=== PATIENT | female | born 1990 | race African-American/Black ===

== ENCOUNTER 2016-08-18 09:27 | Emergency (ER) | payer MEDICAID ==
[~2016-08-18] VITALS: Ht 167.6 cm; Wt 122.5 kg
[2016-08-18 09:30] VITALS: BP 113/76
--- NOTE | 2016-08-18 09:55 | Emergency Room Report ---
History of Present Illness General Chief Complaint: Toothache Source: Patient Present Illness HPI Presents with toothache. Tooth crack months ago. The pain started to get worse 3 days ago. She took Motrin 800 mg every 6 hours since last night. Has not been helping. She denies any fevers or chills. The pain is constant radiates somewhat to the jaw is severe. No neck pain, swelling. No problems eating except with chewing on that side. Allergies: Coded Allergies: No Known Allergies (Unverified , 08/18/16) Patient History Past Medical History: see triage record Social History Narrative She works for [employer] Last Menstrual Period: 08/02/16 Now: No : 0 Para: 0 Reviewed Nursing Documentation: PMH: Agreed, PSxH: Agreed Nursing Documentation-PMH Hx Gastrointestinal Problems: Yes - gallstones remove 2013 Review of Systems Constitutional: Reports: see HPI ENT: Reports: see HPI Respiratory: Denies: cough Cardiovascular: Denies: chest pain Gastrointestinal: Reports: see HPI Musculoskeletal: Reports: see HPI Skin: Reports: see HPI Physical Exam Vital Signs Date Time Temp Pulse Resp B/P Pulse Ox O2 Delivery O2 Flow Rate FiO2 08/18/16 09:30 99.1 18 113/76 98 Room Air 08/18/16 09:30 68 Sp02 EP Interpretation: reviewed, normal General Appearance: well appearing, no apparent distress Head: normocephalic, atraumatic ENT: hearing grossly normal, normal pharynx, normal voice, other - cracked molar L 1st, no significant swelling Neck: full range of motion, supple Respiratory: no respiratory distress, speaking full sentences Musculoskeletal: gait/station normal Neurologic: alert, normal gait Psychiatric: mood/affect normal Skin: no rash Medical Decision Making Diagnostic Impression: Primary Impression: Toothache ER Course Patient with tooth pain with cracked molar. Needs antibiotics and analgesia. Will also need to follow up with dentist. Patient stable for outpatient observation and treatment. Last Vital Signs Date Time Temp Pulse Resp B/P Pulse Ox O2 Delivery O2 Flow Rate FiO2 08/18/16 10:24 99.1 18 113/76 98 Room Air 08/18/16 09:30 68 Status: improved Disposition: HOME, SELF-CARE Condition: Improved Scripts Lidocaine HCl (Lidocaine HCl Viscous) 100 Ml Solution 1 APPLIC PO Q6HR Y for For Pain, #30 ML Prov: Stewart Oconnell M.D. 08/18/16 Ibuprofen* (MOTRIN*) 600 Mg Tablet 600 MG ORAL Q6H Y for For Pain, #16 TAB Prov: Stewart Oconnell M.D. 08/18/16 Hydrocodone Bit/Acetaminophen 5-325* (NORCO 5-325*) 1 Each Tablet 1 TAB ORAL Q6H Y for For Pain, #10 TAB 0 Refills Prov: Stewart Oconnell M.D. 08/18/16 Amoxicillin* (AMOXIL*) 500 Mg Capsule 500 MG ORAL THREE TIMES A DAY, #21 CAP Prov: Stewart Oconnell M.D. 08/18/16 Stewart Oconnell M.D. Aug 18, 2016 09:55
[2016-08-18] MEDS ORDERED: NORCO 5-325 TA1 EACH ORAL (09:59)
[2016-08-18] MEDS ORDERED: IBUPROFEN600 MG ORAL (09:59)
[2016-08-18] MEDS ORDERED: AMOXICILLIN500 MG ORAL (09:59)
[2016-08-18] MEDS ORDERED: LIDOCAINE VISCO20 ML PO (09:59)
[2016-08-18] MEDS ORDERED: Norco 5mg/325mg tab ORAL ONE (10:00)
[2016-08-18 10:24] VITALS: BP 113/76
== END 2016-08-18 10:25 | disposition home or self-care (01) ==
LOC: EMR 10:11
DX: K08.89 Other specified disorders of teeth and supporting structures (principal)
CPT/HCPCS: 99284

== ENCOUNTER 2016-09-23 10:57 | Emergency (ER) | payer MEDICAID ==
[~2016-09-23] VITALS: Ht 165.1 cm; Wt 99.8 kg
[~2016-09-23 10:57] MED LIST: AMOXICILLIN500 MG ORAL; IBUPROFEN600 MG ORAL; LIDOCAINE VISCO20 ML PO; NORCO 5-325 TA1 EACH ORAL
[2016-09-23 11:06] VITALS: BP 110/63
[2016-09-23] MEDS ORDERED: IBUPROFEN600 MG ORAL (11:19)
--- NOTE | 2016-09-23 11:27 | Emergency Room Report ---
History of Present Illness General Chief Complaint: Toothache Source: Patient, Medical Record Present Illness HPI Patient present with complaints of right lower dental pain Reports that she has not been able to see a dentist And will be able to see him on Monday However the pain continues 10/15 Patient has some associated pain to the front part of the ear Denies any fevers chills Denies any trismus Denies any neck pain Allergies: Coded Allergies: No Known Allergies (Unverified , 08/18/16) Patient History Past Medical History: see triage record Pertinent Family History: none Last Menstrual Period: 09/04/16 Reviewed Nursing Documentation: PMH: Agreed, PSxH: Agreed Nursing Documentation-PMH Past Medical History: No History, Except For Hx Gastrointestinal Problems: Yes - gallstones remove 2012 Review of Systems All Other Systems: negative except mentioned in HPI Physical Exam Vital Signs Date Time Temp Pulse Resp B/P Pulse Ox O2 Delivery O2 Flow Rate FiO2 09/23/16 11:06 98.3 80 16 110/63 97 Room Air Sp02 EP Interpretation: reviewed, normal General Appearance: well appearing, no apparent distress Head: normocephalic, atraumatic Eyes: bilateral eye EOMI, bilateral eye PERRL ENT: other - Dental decay and what appears to be possible break in the right back molar region, no associated gingival edema Neck: supple Respiratory: lungs clear Cardiovascular #1: regular rate, rhythm Gastrointestinal: non tender, soft Musculoskeletal: normal inspection Neurologic: alert, oriented x3 Skin: no rash Lymphatic: no adenopathy Medical Decision Making Diagnostic Impression: Primary Impression: Toothache ER Course Given the patient's presentation appears to have radiology in line with dental pathology Patient initially states that she has not seen a dentist however on cures, it appears the patient filled opiate medications from a dentist in the beginning of September Patient also had [place] from this emergency room previous to that Given the safe pain medicine prescribing campaign patient was discussed regarding the importance of close primary and dental followup unfortunately at this time further opiate prescription is inappropriate and the patient requires close outpatient followup Patient was given prescription medicine for pain however Last Vital Signs Date Time Temp Pulse Resp B/P Pulse Ox O2 Delivery O2 Flow Rate FiO2 09/23/16 11:06 98.2 80 16 110/63 97 Room Air Status: unchanged Disposition: HOME, SELF-CARE Condition: Stable Scripts Ibuprofen* (MOTRIN*) 600 Mg Tablet 600 MG ORAL Q8H Y for For Pain, #20 TAB 0 Refills Prov: SUE GALLARDO D.O. 09/23/16 Patient Instructions: Dental Pain Additional Instructions: Patient is provided with the discharge instructions notified to follow up with primary doctor in the next 2-3 days otherwise return to the er with any worsening symptoms. Please note that this report is being documented using [employer] technology. This can lead to erroneous entry secondary to incorrect interpretation by the dictating instrument. SUE GALLARDO D.O. September 23, 2016 11:27
[2016-09-23 11:29] VITALS: BP 115/75
== END 2016-09-23 11:27 | disposition home or self-care (01) ==
LOC: EMR 11:20
DX: K08.89 Other specified disorders of teeth and supporting structures (principal)
CPT/HCPCS: 99283

== ENCOUNTER 2017-05-26 07:20 | Emergency (ER) | payer MEDICAID ==
[~2017-05-26] VITALS: Ht 167.6 cm; Wt 99.8 kg
[2017-05-26] MEDS ORDERED: NKM (07:27)
[2017-05-26 07:30] VITALS: BP 108/70
[2017-05-26] MEDS ORDERED: PEPCID20 MG ORAL (07:52)
[2017-05-26] MEDS ORDERED: ZOFRAN ODT4 MG ORAL (07:52)
[2017-05-26 07:57] VITALS: BP 108/70
--- NOTE | 2017-05-26 08:26 | Emergency Room Report ---
History of Present Illness General Chief Complaint: Abdominal Pain Source: Patient Present Illness HPI 26-year-old female with bilateral lower abdominal pain since last night Associated with last episode of vomiting 3 hours prior Patient states she has "been on a diet for 5 days and "but then had meat for first time last night and immediately fell ill right after." No other sick contacts at home or work. Patient now feels like she is going to have multiple episodes of diarrhea No other abdominal surgery aside from cholecystectomy Allergies: Coded Allergies: No Known Allergies (Unverified , 08/18/16) Patient History Past Surgical History: kulwant Pertinent Family History: none Social History: Denies: smoking, alcohol use, drug use Last Menstrual Period: 05/22/2017 Now: No Immunizations: UTD Reviewed Nursing Documentation: PMH: Agreed, PSxH: Agreed Nursing Documentation-PMH Past Medical History: No Stated History Hx Gastrointestinal Problems: Yes - gallstones remove 2012 Review of Systems All Other Systems: negative except mentioned in HPI Physical Exam Vital Signs Date Time Temp Pulse Resp B/P (MAP) Pulse Ox O2 Delivery O2 Flow Rate FiO2 05/26/17 07:23 97.9 62 14 102/68 100 Room Air Sp02 EP Interpretation: reviewed, normal General Appearance: normal inspection, well appearing, no apparent distress, alert, GCS 15, non-toxic, obese Head: normocephalic, atraumatic Eyes: bilateral eye PERRL, bilateral eye EOMI ENT: normal ENT inspection, hearing grossly normal, normal pharynx, no angioedema, normal voice, TMs + canals normal, uvula midline, moist mucus membranes Neck: normal inspection, full range of motion, supple, thyroid normal, no meningismus, no bony tend Respiratory: normal inspection, lungs clear, normal breath sounds, no rhonchi, no respiratory distress, no retraction, no accessory muscle use, no wheezing, speaking full sentences Cardiovascular #1: regular rate, rhythm, no edema, no JVD, normal capillary refill Gastrointestinal: normal inspection, normal bowel sounds, non tender, soft, no mass, no peritonitis, non-distended, no guarding, no hernia, no pulsatile mass Genitourinary: no CVA tenderness Musculoskeletal: normal inspection, back normal, normal range of motion, no calf tenderness, pelvis stable, Daxa's Sign negative Neurologic: normal inspection, alert, oriented x3, responsive, international accountant III-XII nml as tested, motor strength/tone normal, cerebellar normal, normal gait, speech normal Psychiatric: normal inspection, judgement/insight normal, mood/affect normal, no suicidal/homicidal ideation, no delusions Skin: normal inspection, normal color, no rash Lymphatic: normal inspection, no adenopathy Medical Decision Making Diagnostic Impression: Primary Impression: Abdominal pain Qualified Codes: R10.9 - Unspecified abdominal pain ER Course 26-year-old female with abdominal pain Vital signs stable, afebrile No focal abdominal tenderness on exam tolerating by mouth in the ER, was given Zofran possible viral gastroenteritis given the symptoms started immediately after eating food Suspicion for acute bacterial or surgical process given normal vitals, well appearance and nonfocal abdomen ER course: Patient has remained stable during ED stay. Disposition: Patient is to be discharged to home. Prescriptions given are zofran, pepcid Patient is instructed to follow up with their primary care doctor within 5 days. Strict return precautions discussed with patient such as fever, chills, worsening/severe pain, nausea, vomiting, which may indicate severe illness. Patient verbalizes understanding and agrees with plan. Please note that this Emergency Department Report was dictated using [employer] tutor technology software, occasionally this can lead to erroneous entry secondary to interpretation by the dictation equipment Last Vital Signs Date Time Temp Pulse Resp B/P (MAP) Pulse Ox O2 Delivery O2 Flow Rate FiO2 05/26/17 07:57 97.9 82 12 108/70 100 Room Air Status: improved Disposition: HOME, SELF-CARE Condition: Improved Scripts Ondansetron Odt* (ZOFRAN ODT*) 4 Mg Tab.rapdis 4 MG ORAL TID Y for Nausea & Vomiting for 7 Days, #20 TAB 0 Refills Prov: ALEJANDRA BELTRAN M.D. 05/26/17 Famotidine (PEPCID) 20 Mg Tablet 20 MG ORAL BID for 7 Days, #14 TAB 0 Refills Prov: ALEJANDRA BELTRAN M.D. 05/26/17 Patient Instructions: Viral Gastroenteritis, Adult, [id number] Additional Instructions: - Take zofran as needed for nausea - [place] food, garrett felecia only - Take pepcid twice a day until symptoms resolve ALEJANDRA BELTRAN M.D. May 26, 2017 08:26
== END 2017-05-26 07:57 | disposition home or self-care (01) ==
LOC: EMR 07:49
DX: R10.9 Unspecified abdominal pain (principal); Z90.49 Acquired absence of other specified parts of digestive tract
CPT/HCPCS: 99284

== ENCOUNTER 2017-07-15 17:45 | Emergency (ER) | payer MEDICAID ==
[~2017-07-15] VITALS: Ht 165.1 cm; Wt 99.8 kg
[~2017-07-15 17:45] MED LIST changes: +NKM; +PEPCID20 MG ORAL; +ZOFRAN ODT4 MG ORAL
--- NOTE | 2017-07-15 18:03 | Emergency Room Report ---
History of Present Illness General Chief Complaint: Lower Extremity Injury Source: Patient Present Illness HPI 27 yo female patient presents to ER complaining of right ankle pain [id number]. Reports injury at that time, states she never followup with her physician. Denies calf pain. 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 Reports taking Ibuprofen for pain symptoms. Denies chest pain, SOB, fever. Reports able to ambulate; reports drove herself to work. Denies pain worse in the morning. Allergies: Coded Allergies: No Known Allergies (Unverified , 08/18/16) Patient History Past Medical History: see triage record Last Menstrual Period: 06/15/17 Now: No : 0 Para: 0 Reviewed Nursing Documentation: PMH: Agreed, PSxH: Agreed Nursing Documentation-PMH Past Medical History: No History, Except For Hx Gastrointestinal Problems: Yes - gallstones remove 2012 Review of Systems All Other Systems: negative except mentioned in HPI Physical Exam Vital Signs Date Time Temp Pulse Resp B/P (MAP) Pulse Ox O2 Delivery O2 Flow Rate FiO2 07/15/17 17:53 98.2 78 18 109/75 99 Room Air 98.2 Sp02 EP Interpretation: reviewed, normal General Appearance: well appearing, no apparent distress, alert, GCS 15 Head: normocephalic, atraumatic Eyes: bilateral eye normal inspection, bilateral eye PERRL ENT: hearing grossly normal, normal pharynx, no angioedema, normal voice, uvula midline, moist mucus membranes Neck: full range of motion Respiratory: lungs clear, normal breath sounds, no rhonchi, no respiratory distress, no accessory muscle use, no wheezing, speaking full sentences Cardiovascular #1: regular rate, rhythm, no edema Cardiovascular #2: 2+ dorsalis pedis (R), 2+ dorsalis pedis (L) Genitourinary: no CVA tenderness Musculoskeletal: back normal, digits/nails normal, gait/station normal, normal range of motion, non-tender, no calf tenderness, Daxa's Sign negative, other - NVI, no TTP, no TTP along malleolus, fifth metatarsal, no swelling, no erythema , no ecchymosis, sensation intact to light touch, low arches bilaterally Neurologic: alert, oriented x3, responsive, motor strength/tone normal, sensory intact, normal gait Psychiatric: mood/affect normal Skin: no rash Lymphatic: no adenopathy Medical Decision Making PA Attestation Dr. Littlejohn is my supervising Physician whom patient management has been discussed with. Diagnostic Impression: Primary Impression: Ankle pain ER Course Pt. presents to the ED c/o ankle pain. Ddx considered but are not limited to sprain, strain, contusion. Vital signs: are WNL, pt. is afebrile Due to benign PE and chronicity of symptoms, imaging not required at this time. Informed patient she has low arches; instructed patient to use arch supports. ED INTERVENTIONS: LAURA Wrap applied to right ankle. The affected ankle was checked afterwards by me showing good alignment and support with distal neurovascular functioning intact. Patient requesting strong pain medication. Informed patient would provide with Tylenol. Patient declines crutches. DISCHARGE: -Rx provided for Tylenol for pain symptoms. At this time pt. is stable for d/c to home. Patient resting comfortably, in no acute distress, nontoxic appearing. Will provide printed patient care instructions, and any necessary prescriptions. Patient instructed to follow with primary care provider in 3 - 5 days and to request further orthopedic follow-up. Care plan and follow up instructions have been discussed with the patient prior to discharge. Patient instructed on RICE method: rest, ice, compression, elevation. Patient instructed to WBAT. Take medications as directed. Patient questions asked and answered. ER precautions given, patient instructed to return to ER immediately for any new or worsening of symptoms. Last Vital Signs Date Time Temp Pulse Resp B/P (MAP) Pulse Ox O2 Delivery O2 Flow Rate FiO2 07/15/17 17:53 98.2 78 18 109/75 99 Room Air 98.2 Disposition: HOME, SELF-CARE Condition: Stable Scripts Acetaminophen* (TYLENOL EXTRA STRENGTH*) 500 Mg Tablet 500 MG ORAL Q8H Y for Prn Headache/Temp > 101, #30 TAB 0 Refills Prov: Rene Lugo.Rigoberto 07/15/17 Patient Instructions: Ankle Sprain Additional Instructions: Patient instructed to follow up with primary care provider and discuss further referral to orthopedics and/or pain management. Patient instructed on RICE method: rest, ice, compression, elevation. Use orthotic inserts at home. Patient instructed to WBAT. Take medications as directed. Patient questions asked and answered. ER precautions given, patient instructed to return to ER immediately for any new or worsening of symptoms. Rene Lugo Jul 15, 2017 18:02
[2017-07-15] MEDS ORDERED: TYLENOL EXTRA500 MG ORAL (18:15)
[2017-07-15 18:21] VITALS: BP 109/75
== END 2017-07-15 18:21 | disposition home or self-care (01) ==
LOC: EMR 18:20
DX: M25.571 Pain in right ankle and joints of right foot (principal)
CPT/HCPCS: 99283

== ENCOUNTER 2017-10-28 11:47 | Emergency (ER) | payer MEDICAID ==
[~2017-10-28] VITALS: Ht 167.6 cm; Wt 113.4 kg
[~2017-10-28 11:47] MED LIST changes: +TYLENOL EXTRA500 MG ORAL
[2017-10-28 12:10] VITALS: BP 110/77
[2017-10-28] MEDS ORDERED: Lidocaine 2% Visc 15ml soln ORAL ONE (12:15)
--- NOTE | 2017-10-28 12:23 | Emergency Room Report ---
History of Present Illness General Chief Complaint: Chest Pain Source: Patient Present Illness HPI 27-year-old female patient presents ER complaining of intermittent chest pain for the past 3 days. Reports that she also has a sore throat due to intermittent symptoms of vomiting, last episode of vomiting yesterday, denies blood in emesis.. Also reports that she smokes cigarettes. Denies past cardiovascular history. Denies history of asthma. Reports that she had her gallbladder removed. reports that chest pain does not occur with exertion. denies radiation of chest pain. Also complains of mild epigastric discomfort during this time. reports that she eats a lot of spicy foods and has some reflux symptoms. denies difficulty breathing, fever, abdominal pain, dysuria, hematuria. Denies hx of cancer, denies hx of immobilization, denies hx of recent travel, denies cough or hemoptysis. Allergies: Coded Allergies: No Known Allergies (Unverified , 08/18/16) Patient History Past Medical History: see triage record Last Menstrual Period: 10/10/17 Now: No : 0 Para: 0 Reviewed Nursing Documentation: PMH: Agreed; PSxH: Agreed Nursing Documentation-PMH Hx Gastrointestinal Problems: Yes - Cholecystectomy 2012 Review of Systems All Other Systems: negative except mentioned in HPI Physical Exam Vital Signs Date Time Temp Pulse Resp B/P (MAP) Pulse Ox O2 Delivery O2 Flow Rate FiO2 10/28/17 11:57 98.1 78 18 110/77 96 Room Air 98.1 Sp02 EP Interpretation: reviewed, normal General Appearance: well appearing, no apparent distress, alert, GCS 15, non- toxic Head: normocephalic, atraumatic Eyes: bilateral eye normal inspection, bilateral eye PERRL ENT: hearing grossly normal, normal pharynx, no angioedema, normal voice, TMs + canals normal, uvula midline, moist mucus membranes Neck: full range of motion Respiratory: lungs clear, normal breath sounds, no rhonchi, no respiratory distress, no accessory muscle use, no wheezing, speaking full sentences Cardiovascular #1: regular rate, rhythm, no edema Gastrointestinal: non tender, soft, no mass, non-distended, no guarding, no rebound Genitourinary: no CVA tenderness Musculoskeletal: back normal, digits/nails normal, gait/station normal, normal range of motion, non-tender Neurologic: alert, oriented x3, responsive, motor strength/tone normal, sensory intact Psychiatric: mood/affect normal Medical Decision Making PA Attestation Dr. Littlejohn is my supervising Physician whom patient management has been discussed with. Diagnostic Impression: Primary Impression: Acid reflux ER Course Pt. presents to the ED c/o intermittent chest pain, vomiting, and epigastric discomfort. Ddx considered but are not limited to esophagitis, influenza, GERD, vomiting, ID. Low suspicion for PE per the Well's criteria. Vital signs: are WNL, pt. is afebrile ER COURSE: Physical exam benign, lungs clear to auscultation. EKG shows no arrhythmia, no ST elevations, normal sinus rhythm. CXR negative for acute disease. Intermittent chest pain with reflux symptoms, no hx of cardiovascular disease, normal EKG, low suspicion for cardiac etiology of symptoms, does not require labs at this time. provided Pepcid and viscous lidocaine while in ER. History and symptoms consistent with reflux, instructed patient to avoid spicy foods and dairy foods, elevate head of bed, drink plenty of fluids. Avoid stress, may exacerbate symptoms. Work note provided. Instructed patient to stop smoking. DISCHARGE: Rx provided for Pepcid At this time pt is stable for d/c to home. Patient is resting, in no acute distress, nontoxic appearing. Will provide with patient care instructions and any necessary prescriptions. Patient to take medication as instructed. Care plan and follow-up instructions provided. Patient questions asked and answered. Patient instructed to follow-up with primary care provider in 3- 5 days to discuss further treatment and referral to GI specialist for evaluation. Patient states understanding and agreement to treatment plan ER precautions given. Patient instructed to return to ER immediately for any new or worsening of symptoms - Please note that this Emergency Department Report was dictated using [employer] mechanic technology software, occasionally this can lead to erroneous entry secondary to interpretation by the dictation equipment. EKG Diagnostic Results EP Interpretation: 68 Rate: normal Rhythm: NSR ST Segments: no acute changes ASA given to the pt in ED: No PA Scribe Text Bakari Lugo PA-C Rhythm Strip Diag. Results EP Interpretation: yes Rate: 68 Rhythm: NSR, no PVC's, no ectopy PA Scribe Text Bakari Lugo PA-C Chest X-Ray Diagnostic Results Chest X-Ray Diagnostic Results : Chest X-Ray Ordered: Yes # of Views/Limited/Complete: 1 View EP Interpretation: Yes DOUG Xray: Interpretation reviewed, by supervising MD, and agrees with findings. Interpretation: no consolidation, no effusion, no pneumothorax, no acute cardiopulmonary disease Impression: No acute disease DOUG Scribjohnny Text Bakari Lugo PA-C Last Vital Signs Date Time Temp Pulse Resp B/P (MAP) Pulse Ox O2 Delivery O2 Flow Rate FiO2 10/28/17 12:10 78 18 Room Air 10/28/17 11:57 98.1 110/77 96 98.1 Disposition: HOME, SELF-CARE Condition: Stable Scripts Famotidine (PEPCID AC) 20 Mg Tablet 20 MG PO BID, #30 TAB Prov: Rene Lugo 10/28/17 Patient Instructions: Food Choices for Gastroesophageal Reflux Disease, Adult, [id number], Heartburn Additional Instructions: Followup with primary care provider in 3 -5 days for further treatment and referral to GI. Keep food journal of foods eaten and times of symptom onset. Take medications as directed. Patient questions asked and answered. ER precautions given, patient instructed to return to ER immediately for any new or worsening of symptoms including but not limited to chest pain, SOB, abdominal pain, blood in vomit. Drink fluids as tolerated to prevent dehydration. Take Tylenol OTC for pain, easier on stomach. Avoid spicy foods, avoid dairy. Do not eat late night meals. Elevate head of bed when sleeping. stop smoking. Rene Lugo Oct 28, 2017 12:23
[2017-10-28] MEDS ORDERED: PEPCID AC20 M2 PO (12:29)
--- NOTE | 2017-10-28 12:29 | Diagnostic Imaging Report ---
EXAM: XR Chest, 1 View CLINICAL HISTORY: PAIN TECHNIQUE: Frontal view of the chest. COMPARISON: No relevant prior studies available. FINDINGS: Lungs: No consolidation. Pleural space: Unremarkable. No pneumothorax. Heart: Unremarkable. No cardiomegaly. Mediastinum: Unremarkable. Bones/joints: No acute fracture. IMPRESSION: No acute cardiopulmonary disease.
[2017-10-28 12:53] VITALS: BP 110/77
--- NOTE | 2017-11-01 15:27 | Cardiology Report ---
APPROVED REPORT EKG Measurement Heart [id number] Normal sinus rhythm Normal ECG
== END 2017-10-28 13:00 | disposition home or self-care (01) ==
LOC: EMR 12:30
DX: K21.9 Gastro-esophageal reflux disease without esophagitis (principal); Z90.49 Acquired absence of other specified parts of digestive tract
CPT/HCPCS: 71045; 93005; 99283

== ENCOUNTER 2018-01-22 21:53 | Emergency (ER) | payer MEDICAID ==
[~2018-01-22] VITALS: Ht 167.6 cm; Wt 113.4 kg
[~2018-01-22 21:53] MED LIST changes: +PEPCID AC20 M2 PO
[2018-01-22 21:57] VITALS: BP 128/74
--- NOTE | 2018-01-22 22:19 | Emergency Room Report ---
History of Present Illness General Chief Complaint: Flu Like Symptoms Source: Patient Present Illness HPI 27-year-old female presents ED for evaluation. States that she is having cough and congestive symptoms for the last 4-5 days. Runny nose, cough is dry. No sore throat and earache. Pain is dull, 6 out of 10, nonradiating. States that she's been taking efjo-[id number] cold medication. States that she did drink some wine tonight. Is feeling weak and dizzy. States she's having frequent urination. Denies flank pain. Denies nausea or vomiting. No other aggravating relieving factors. Denies any other associated symptoms Allergies: Coded Allergies: No Known Allergies (Unverified , 08/18/16) Patient History Past Surgical History: kulwant Pertinent Family History: none Social History: Denies: smoking, alcohol use, drug use Last Menstrual Period: 01/22/2018 Now: No : 0 Para: 0 Immunizations: UTD Reviewed Nursing Documentation: PMH: Agreed; PSxH: Agreed Nursing Documentation-PMH Past Medical History: No Stated History Hx Gastrointestinal Problems: Yes - Cholecystectomy 2012 Review of Systems All Other Systems: negative except mentioned in HPI Physical Exam Vital Signs Date Time Temp Pulse Resp B/P (MAP) Pulse Ox O2 Delivery O2 Flow Rate FiO2 01/22/18 21:57 98.1 106 16 128/74 98 Room Air 98.1 Sp02 EP Interpretation: reviewed, normal General Appearance: no apparent distress, alert, GCS 15, non-toxic Head: normocephalic, atraumatic Eyes: bilateral eye normal inspection, bilateral eye PERRL ENT: hearing grossly normal, normal pharynx, no angioedema, normal voice Neck: full range of motion, supple/symm/no masses Respiratory: chest non-tender, lungs clear, normal breath sounds, speaking full sentences Cardiovascular #1: regular rate, rhythm, no edema Cardiovascular #2: 2+ carotid (R), 2+ carotid (L), 2+ radial (R), 2+ radial (L) , 2+ dorsalis pedis (R), 2+ dorsalis pedis (L) Gastrointestinal: normal bowel sounds, non tender, soft, non-distended, no guarding, no rebound Rectal: deferred Genitourinary: normal inspection, no CVA tenderness Musculoskeletal: back normal, gait/station normal, normal range of motion, non- tender Neurologic: alert, oriented x3, responsive, motor strength/tone normal, sensory intact, speech normal Psychiatric: judgement/insight normal, memory normal, mood/affect normal, no suicidal/homicidal ideation Reflexes: 3+ bicep (R), 3+ bicep (L), 3+ tricep (R), 3+ tricep (L), 3+ knee (R) , 3+ knee (L) Skin: normal color, no rash, warm/dry, well hydrated Lymphatic: no adenopathy Medical Decision Making Diagnostic Impression: Primary Impression: Upper respiratory infection Qualified Codes: J04.31 - Supraglottitis, unspecified, with obstruction ER Course Hospital Course 27-year-old female presents to ED complaining of cough, runny nose. feels dizzy and weak after taking OTC meds with wine Differential diagnoses include: URI, pharyngitis, otitis media, UTI Clinical course Patient placed on stretcher. After initial history, physical exam reveals a young female in no acute distress. Bilateral TM unremarkable. No pharyngeal erythema. No tonsillar exudates. No lymphadenopathy. lungs clear. abdomen soft. UA negative. Patient's symptoms improved after IV hydration. Patient safe for discharge. Diagnosis - URI Stable and discharged home. Instructed to followup with PMD. Return to ED if symptoms recur or worsen Labs Test 01/22/18 22:05 Urine Color Pale yellow Urine Appearance Clear Urine pH 6 (4.5-8.0) Urine Specific [place] 1.005 (1.005-1.035) Urine Protein Negative (NEGATIVE) Urine Glucose (UA) Negative (NEGATIVE) Urine Ketones Negative (NEGATIVE) Urine Blood Negative (NEGATIVE) Urine Nitrite Negative (NEGATIVE) Urine Bilirubin Negative (NEGATIVE) Urine Urobilinogen Normal MG/DL (0.0-1.0) Urine Leukocyte Esterase Negative (NEGATIVE) Urine HCG, Qualitative Negative (NEGATIVE) Last Vital Signs Date Time Temp Pulse Resp B/P (MAP) Pulse Ox O2 Delivery O2 Flow Rate FiO2 01/22/18 21:57 98.1 106 16 128/74 98 Room Air 98.1 Status: improved Disposition: HOME, SELF-CARE Condition: Stable Referrals: NOT CHOSEN IPA/,REFERRING (PCP) Leandro Ordoñez MD Jan 22, 2018 22:19
[2018-01-22 22:23] LABS: APPEARANCE,URINE CLEAR; BILIRUBIN, URINE NEGATIVE (NEGATIVE); COLOR,URINE PALE YELLOW; GLUCOSE, URINE (UA) NEGATIVE (NEGATIVE); KETONES,URINE NEGATIVE (NEGATIVE); LEUKOCYTE ESTERASE ,URINE NEGATIVE (NEGATIVE); NITRITE,URINE NEGATIVE (NEGATIVE); PH,URINE 6 (4.5-8.0); PROTEIN,URINE NEGATIVE (NEGATIVE); UROBILINOGEN,URINE NORMAL MG/DL (0.0-1.0)
[2018-01-22] MEDS ORDERED: Ketorolac 30mg Inj IV ONE (22:45)
[2018-01-22 23:49] VITALS: BP 122/70
[2018-01-22 23:58] VITALS: BP 122/74
== END 2018-01-22 23:59 | disposition home or self-care (01) ==
LOC: EMR 22:13
DX: J06.9 Acute upper respiratory infection, unspecified (principal); R05 Cough
CPT/HCPCS: 81003; 81025; 96361; 96374; 99284; J1885

== ENCOUNTER 2018-12-22 11:45 | Emergency (ER) | payer MEDICAID ==
[~2018-12-22] VITALS: Ht 167.6 cm; Wt 124.7 kg
[2018-12-22 12:30] VITALS: BP 101/67
[2018-12-22] MEDS ORDERED: Ketorolac 60mg Inj IM ONE (12:30)
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
--- NOTE | 2018-12-22 12:40 | NUR ---
ED Nurse Note: pt went ot xray with tech
--- NOTE | 2018-12-22 12:45 | NUR ---
ED Nurse Note: pt able to give urine sample and was sent to lab. pt medicated as ordered. will continue to monitor.
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
[2018-12-22] MEDS ORDERED: IBU800 MG PO (13:10)
[2018-12-22] MEDS ORDERED: ROBAXIN500 MG PO (13:10)
[2018-12-22 13:35] VITALS: BP 101/67
--- NOTE | 2018-12-22 13:35 | NUR ---
ER DISCHARGE NOTE: Patient is cleared to be discharged per ERMD, pt is aox4, on room air, with stable vital signs. pt was given dc and prescription instructions, pt was able to verbalize understanding, pt id band removed without complications. pt is able to ambulate with steady gait. pt took all belongings.
== END 2018-12-22 13:35 | disposition home or self-care (01) ==
LOC: EMR 12:30
DX: S16.1XXA Strain of muscle, fascia and tendon at neck level, initial encounter (principal); Z90.49 Acquired absence of other specified parts of digestive tract; Z87.891 Personal history of nicotine dependence; E66.01 Morbid (severe) obesity due to excess calories; Z68.41 Body mass index [BMI] 40.0-44.9, adult; V43.52XA Car driver injured in collision with other type car in traffic accident, initial encounter; Y92.410 Unspecified street and highway as the place of occurrence of the external cause
CPT/HCPCS: 72040; 81025; 96372; 99284

== ENCOUNTER 2019-04-22 18:26 | Emergency (ER) | payer MEDICAID ==
[~2019-04-22] VITALS: Ht 167.6 cm; Wt 113.4 kg
[~2019-04-22 18:26] MED LIST changes: +IBU800 MG PO; +ROBAXIN500 MG PO
[2019-04-22 19:02] VITALS: BP 110/85
[2019-04-22 20:22] LABS: APPEARANCE,URINE SLIGHTLY CLOUDY; BILIRUBIN, URINE NEGATIVE (NEGATIVE); COLOR,URINE PALE YELLOW; GLUCOSE, URINE (UA) NEGATIVE (NEGATIVE); KETONES,URINE 2+ (NEGATIVE); LEUKOCYTE ESTERASE ,URINE NEGATIVE (NEGATIVE); NITRITE,URINE NEGATIVE (NEGATIVE); PH,URINE 5 (4.5-8.0); PROTEIN,URINE NEGATIVE (NEGATIVE); UROBILINOGEN,URINE NORMAL MG/DL (0.0-1.0)
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
[2019-04-22] MEDS ORDERED: ACETAMINOPHEN500 M3 ORAL (20:36)
[2019-04-22] MEDS ORDERED: ROBAXIN-500MG ORAL (20:36)
[2019-04-22] MEDS ORDERED: LIDODERM700 M1 TOPIC (20:36)
[2019-04-22 20:40] VITALS: BP 110/85
== END 2019-04-22 20:50 | disposition home or self-care (01) ==
LOC: EMR 20:46
DX: N93.9 Abnormal uterine and vaginal bleeding, unspecified (principal); T14.8XXA Other injury of unspecified body region, initial encounter; X58.XXXA Exposure to other specified factors, initial encounter; Y92.9 Unspecified place or not applicable; Z90.49 Acquired absence of other specified parts of digestive tract; G89.29 Other chronic pain; M54.2 Cervicalgia; M25.519 Pain in unspecified shoulder
CPT/HCPCS: 81003; 81025; Z7502; 99283

== ENCOUNTER 2019-11-25 17:46 | Emergency (ER) | payer MEDICAID ==
[~2019-11-25] VITALS: Ht 165.1 cm; Wt 122.0 kg
[~2019-11-25 17:46] MED LIST changes: +ACETAMINOPHEN500 M3 ORAL; +LIDODERM700 M1 TOPIC; +ROBAXIN-500MG ORAL
[2019-11-25] MEDS ORDERED: AMOXICILLIN500 MG ORAL (18:24)
[2019-11-25] MEDS ORDERED: ACYCLOVIR400 MG ORAL (18:24)
[2019-11-25 18:30] VITALS: BP 126/82
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
== END 2019-11-25 18:30 | disposition home or self-care (01) ==
LOC: EMR 18:15
DX: B00.1 Herpesviral vesicular dermatitis (principal); K04.7 Periapical abscess without sinus; Z90.49 Acquired absence of other specified parts of digestive tract
CPT/HCPCS: 99282